=== PATIENT | female | born 1980 | race Caucasian/White ===

== ENCOUNTER → 2017-05-26 | Outpatient (CLI) | payer MEDICAID | LOC: HPND 08:45 | DX: O09.522 Supervision of elderly multigravida, second trimester (principal); O44.12 Complete placenta previa with hemorrhage, second trimester | CPT/HCPCS: 76811 ==

== ENCOUNTER → 2017-07-15 | Outpatient (CLI) | payer MEDICAID | LOC: HPND 08:52 | DX: O09.523 Supervision of elderly multigravida, third trimester (principal); O44.43 Low lying placenta NOS or without hemorrhage, third trimester | CPT/HCPCS: 76816 ==